=== PATIENT | female | born 1995 | race Caucasian/White ===

== ENCOUNTER → 2016-09-30 11:42 | Outpatient (CLI) | payer BC ==
[~2016-09-30 11:42] MED LIST: AMOXICILLIN500 M1 PO; IBUPROFEN600 MG PO; PERCOCET 5-3251 TAB PO; PRENATAL COMPLE1 TAB PO; ZANTAC150 MG PO
[2016-09-30 12:29] LABS: BASOPHILS 0.1 % (0.0-2.0); EOSINOPHILS 0.4 % (0-7); HEMATOCRIT 33.1 % (36.0-48.0); IMMATURE GRANULOCYTES 0.7 % (0-5); LYMPHOCYTES 13.3 % (15-50); MCH 29.4 pg (26.0-34.0); MCHC 33.2 g/dL (31.0-37.0); MCV 88.5 fL (80.0-100.0); MEAN PLATELET VOLUME 11.9 fL (7.4-10.4); MONOCYTES 5.8 % (2-11); NEUTROPHILS 79.7 % (40-80); RBC 3.74 10x6/uL (4.00-5.40); RDW 13.6 % (11.5-14.5); WBC 11.2 10x3/uL (4.8-10.8)
[2016-09-30 12:33] LABS: PLATELET COUNT 147 10x3/uL (130-400)
[2016-09-30 13:19] LABS: APPEARANCE HAZY (CLEAR); BACTERIA MANY /hpf (NONE SEEN); BILIRUBIN NEGATIVE (NEGATIVE); CALCIUM OXALATE CRYSTALS 0-5 /hpf (NONE SEEN); COLOR YELLOW (YELLOW); GLUCOSE NEGATIVE (NEGATIVE); KETONE NEGATIVE (NEGATIVE); LEUKOCYTE ESTERASE 1+ (NEGATIVE); MUCUS <1+ /lpf (NONE SEEN); NITRITE NEGATIVE (NEGATIVE); PROTEIN NEGATIVE (NEGATIVE); RED CELLS - URINE OCC /hpf (0-5); UROBILINOGEN NORMAL (NORMAL)
== END | disposition home or self-care (01) ==
LOC: D.LDO 11:42
PROVIDERS: Obstetrics & Gynecology
DX: Z34.90 Encounter for supervision of normal pregnancy, unspecified, unspecified trimester (principal)

== ENCOUNTER → 2016-10-15 10:28 | Outpatient (CLI) | payer BC | END | disposition home or self-care (01) | LOC: D.LDO 10:28 | DX: O62.9 Abnormality of forces of labor, unspecified (principal); Z3A.33 33 weeks gestation of pregnancy ==

== ENCOUNTER 2016-10-18 19:05 | Outpatient (CLI) | payer BC ==
[2016-10-18 19:38] LABS: APPEARANCE CLOUDY (CLEAR); BILIRUBIN NEGATIVE (NEGATIVE); COLOR STRAW (YELLOW); GLUCOSE 50 mg/dL (NEGATIVE); KETONE NEGATIVE (NEGATIVE); LEUKOCYTE ESTERASE 2+ (NEGATIVE); NITRITE NEGATIVE (NEGATIVE); PROTEIN NEGATIVE (NEGATIVE); UROBILINOGEN NORMAL (NORMAL)
[2016-10-18 19:39] LABS: BACTERIA MODERATE /hpf (NONE SEEN); RED CELLS - URINE 0-5 /hpf (0-5)
== END 2016-10-18 20:21 ==
LOC: D.LDO 19:05
PROVIDERS: Specialist
DX: O36.8130 Decreased fetal movements, third trimester, not applicable or unspecified (principal); Z3A.33 33 weeks gestation of pregnancy; R10.10 Upper abdominal pain, unspecified

== ENCOUNTER 2016-11-11 11:25 | Outpatient (CLI) | payer BC ==
[2016-11-11 12:42] LABS: BACTERIA MANY /hpf (NONE SEEN)
[2016-11-11 12:43] LABS: AMORPHOUS SEDIMENT <1+ /lpf (NONE SEEN); APPEARANCE CLOUDY (CLEAR); BILIRUBIN NEGATIVE (NEGATIVE); COLOR YELLOW (YELLOW); GLUCOSE NEGATIVE (NEGATIVE); KETONE NEGATIVE (NEGATIVE); LEUKOCYTE ESTERASE 2+ (NEGATIVE); MUCUS <1+ /lpf (NONE SEEN); NITRITE NEGATIVE (NEGATIVE); PROTEIN TRACE mg/dL (NEGATIVE); RED CELLS - URINE 0-5 /hpf (0-5); UROBILINOGEN NORMAL (NORMAL)
== END 2016-11-11 16:00 | disposition home or self-care (01) ==
LOC: D.LDO 11:25
PROVIDERS: Obstetrics & Gynecology
DX: O26.893 Other specified pregnancy related conditions, third trimester (principal); Z3A.36 36 weeks gestation of pregnancy

== ENCOUNTER 2016-11-27 04:30 | Inpatient (IN) | payer BC ==
[~2016-11-27] VITALS: Ht 162.6 cm; Wt 83.0 kg
[2016-11-27] MEDS ORDERED: ZANTAC150 MG PO (04:46)
[2016-11-27] MEDS ORDERED: AMOXICILLIN500 M1 PO (04:47)
[2016-11-27] MEDS ORDERED: PRENATAL COMPLE1 TAB PO (04:47)
[2016-11-27 04:48] VITALS: BP 135/69; Ht 162.6 cm; Wt 83.0 kg
[2016-11-27 06:07] LABS: HEMATOCRIT 34.2 % (36.0-48.0); HEMOGLOBIN 11.2 g/dL (12-16); MCH 27.9 pg (26.0-34.0); MCHC 32.7 g/dL (31.0-37.0); MCV 85.3 fL (80.0-100.0); MEAN PLATELET VOLUME 12.5 fL (7.4-10.4); RBC 4.01 10x6/uL (4.00-5.40); RDW 14.5 % (11.5-14.5); WBC 10.7 10x3/uL (4.8-10.8)
[2016-11-27 06:30] LABS: APPEARANCE HAZY (CLEAR); BILIRUBIN NEGATIVE (NEGATIVE); COLOR YELLOW (YELLOW); GLUCOSE NEGATIVE (NEGATIVE); KETONE NEGATIVE (NEGATIVE); LEUKOCYTE ESTERASE TRACE (NEGATIVE); NITRITE NEGATIVE (NEGATIVE); PROTEIN NEGATIVE (NEGATIVE); UROBILINOGEN NORMAL (NORMAL)
[2016-11-27 06:31] LABS: BACTERIA MODERATE /hpf (NONE SEEN); MUCUS <1+ /lpf (NONE SEEN); RED CELLS - URINE OCC /hpf (0-5)
--- NOTE | 2016-11-27 06:35 | NUR ---
PT. UP TO BATHROOM. IN OPEN CRIB AT BEDSIDE. FOB LYING ON SOFA AWAKE.
[2016-11-28] VITALS (8 sets, daily range): BP systolic 114–129; BP diastolic 59–74
--- NOTE | 2016-11-28 04:28 | NUR ---
RCVD PT FROM Sonia CASTRO RN. PT ORIENTED TO ROOM. BREATH SOUNDS CLEAR AND UNLABORED X2. BOWEL SOUNDS ACTIVE X4. FUNDUS FIRM U/1. MOD LOCHIA RUBRA NOTED ON PERIPAD. PADS CHANGED AT THIS TIME. SCD'S ON AND CONNECTED TO PUMP. NS WITH 20 U PITOCIN INFUSING @ 125ML/HR VIA PUMP. Q 15MIN V/S INITIATED. PT DENIES NEEDS AT THIS TIME. PT RATES PAIN 3/10 CURRENTLY IN ABD AND DESCRIBES IT A DULL ACHE. WILL INITIATE AUTO WASHER.
--- NOTE | 2016-11-28 04:53 | NUR ---
DEMEROL X RAY [employer]LECTRON[employer] WIREMAN INITIATED PER ORDERS. [facility] EDU PT ON X RAY [employer]LECT[employer] WIREMAN BUTTON AND THAT ONLY SHE IS TO PRESS BUTTON. PT VERBALIZED UNDERSTANDING.
--- NOTE | 2016-11-28 06:15 | NUR ---
ROUNDS MADE. PT SITTING UP IN BED TEXTING ON CELL PHONE. FOB RESTING ON BEDSIDE COUCH. 700 ML CLEAR YELLOW URINE EMPTIED FROM TOVAR BAG. PT DENIES PAIN OR NEEDS AT THIS TIME.
--- NOTE | 2016-11-28 07:30 | NUR ---
TO ROOM FOR AM ASSESMENT, NURSERY NURSE AT BEDSIDE ASSISTING WITH BREAST FEEDING WILL RETURN WHEN FINISHED. PT DENIES ANY NEEDS AT THIS TIME.
--- NOTE | 2016-11-28 08:15 | NUR ---
LACATIION CARBON ELECTRODES SUPERVISOR AT BEDSIDE. PT WILL CALL WHEN FINISHED SO THAT ASSESSMENT CAN BE COMPLETED. VSS, FUNDUS FIRM AT U/1 WITH LIGHT BLEEDING. RATES PAIN AT 4/10 AND USING GRADUATE TEACHER EDUCATION DIRECTED. ICE PACK OVER INCISION AT THIS TIME, CALL LIGHT IN REACH AND SPOUSE AT BEDSIDE.
--- NOTE | 2016-11-28 08:50 | NUR ---
Michelle Randolph [birth year] LE@ 8:03 S: Patient states she just got baby in the room not to long ago, unsure what to do right now, is he hungry or just fussy? P: Patient sitting up in bed holding infant in cradle position, FOB standing at bedside. Congratulated on delivery. Observed feeding cues, explain infants have a way of communicating with us, through cues. Explain what feeding cues are and explain how to latch , turn tummy to tummy, nose opposite of nipple, and allow infant to self latch. Infant latched on the left breast at 8:10, mouth 140 degrees, round cheeks, sucking in a rocking motion. Both mother and appear content, patient states no discomfort with latching. Nursery nurse came in room to get infant for doctor visit. Infant latched on the left breast from 8:10-8:14. In the beginning takes time and patience, feed infant on demand will help with establishing her milk supply, supply and demand, what baby takes out, your body will make more of. Explain breast milk composition. Explain how to verify is latched correctly and showed how to properly remove infant off the breast. Patient asked how do I know if he is getting anything. Infant will be satisfy after feeding, may remove his self from the breast, and by diaper count. Showed patient in book on keep it simple, how to look up common questions she may have like on page 34 how can I tell if my baby is getting enough to eat. This is a great book with lots of common questions all parents have. Nursery nurse brought infant back on room. Observed infant feeding cues and showed parents, patient latched at 8:38 on left breast mouth 140 degrees, round cheeks, sucking in a rocking motion, perfect latch. awake and alert, content with feeding. Encouraged to continue to latch infant for every feeding. Provided handouts and explained benefits of skin to skin, feeding cues, positions for , starting a feeding, and what to expect the first week. Asked if they had any questions or concerns, stated no and thanked for helping with , will follow up. Please ask for help as needed with . A: New parents, mother and infant learning to breastfeed. P: Continue to latch for every feeding. Alyce Gray, CLC
--- NOTE | 2016-11-28 09:53 | NUR ---
Pt awake and holding , fundus firm at u/1 with massage, light bleeding and no clots noted, angel pad changed. rates pain at 2/10, new ice pack over incision area. Bikini incision is covered with large white bandage that is clean and dry. IV patent and infusing per orders. bowel sounds active x 4, but she denies passing any gas at this time. SCD bilat and on pump. large cup of ice with lemon [place] soda per request. denies any needs or concerns at this time. in crib at bedside and spouse present. side rails up x 2 with phone and call light in reach.
--- NOTE | 2016-11-28 11:41 | NUR ---
demerol civil project engineer syringe changed. pt has infant to breast at this time and rates pain/cramping at 4/10 while feeding. spouse at bedside, side rails up x 2 and call light in reach.
[2016-11-28 12:18] LABS: RAPID PLASMA REAGIN Reactive (Non Reactive); TREPONEMA PALLIDUM AB Negative (Negative)
[2016-11-28 13:13] LABS: BASOPHILS 0.1 % (0.0-2.0); EOSINOPHILS 0.1 % (0-7); HEMATOCRIT 29.3 % (36.0-48.0); HEMOGLOBIN 9.6 g/dL (12-16); IMMATURE GRANULOCYTES 0.4 % (0-5); LYMPHOCYTES 5.9 % (15-50); MCH 27.6 pg (26.0-34.0); MCHC 32.8 g/dL (31.0-37.0); MCV 84.2 fL (80.0-100.0); MEAN PLATELET VOLUME 11.3 fL (7.4-10.4); MONOCYTES 6.3 % (2-11); NEUTROPHILS 87.2 % (40-80); PLATELET COUNT 149 10x3/uL (130-400); RBC 3.48 10x6/uL (4.00-5.40); RDW 14.5 % (11.5-14.5)
[2016-11-28 13:21] LABS: WBC 17.7 10x3/uL (4.8-10.8)
--- NOTE | 2016-11-28 13:45 | NUR ---
rates pain at 3/10, fundus firm with massage at u/u, output to khan canister noted to be 300. denies any needs at this time.
--- NOTE | 2016-11-28 15:00 | NUR ---
Iv completed and saline locked, veterinary virus serum inspector d/c per orders. Pt given tordal 30mg slow ivp per orders and than flushed site with 10ml ns. fundus firm at u/u with light bleeding noted to angel pad. Pads changed. Due to pt visitors waiting will remove khan and transfer to room 1257 after visitors leave. She will call for nurse when ready.
--- NOTE | 2016-11-28 15:30 | NUR ---
Pt calls out states she is ready to get up. Yang cath removed with a total of 2100ml clear urine noted. She is able to move her self to sitting on side of the bed, denies dizziness or nausea. Stands without complaint, angel pad and panties put on and pt lowers self on to wheelchair. Transferred to room 1257, she and spouse are oriented to room, call light and tv. Nursery nurse brings infant to room for feeding. per pt request she is transferred with little assistance to bedside chair and nursery nurse assist with breast feeding. Pain med offered, she rates pain at 7/10 and is agreeable to take the Percocet ordered.
--- NOTE | 2016-11-28 16:07 | NUR ---
Percocet 10/325mg given as charted on emar. spouse states he will be in room and will call when she is ready to get in to the bed or up to bathroom, if any assistance is needed. Provided nursery number and l/d unit desk number.
--- NOTE | 2016-11-28 17:50 | NUR ---
pt spouse to unit desk with questions about visitors under age of 14, policy gone over with him and he states that was his understanding and just needed to verify. Explained that nursery nurse was available if needed to go over this with visitor.
--- NOTE | 2016-11-28 18:30 | NUR ---
Pt sitting up in bed visiting with multiple family members. Questions answered about when she is able to shower and incision care after shower. Also given verbal instructions on how to remove bandage and wash incision site. Pt and spouse state their understanding but are encouraged to call nurse for assistance if needed. Reassured she is able to dress in her own gown after her shower. When asked about voiding she states that she has not due to fear of burning, reassured her this should not be an issue and that if she did not void in the next hour than and in and out cath might have to be done to empty her bladder, explained reason for this and she states her understanding and will call after she has voided, collection hat in bathroom already in place. Call light in reach.
--- NOTE | 2016-11-28 19:40 | NUR ---
FOB CALLS TO REPORT THAT PT. HAS VOIDED. TO ROOM. PT. SITTING UP IN CHAIR . 200CC URINE VOLUME NOTED IN [place] HAT. PT. REPORTS THAT AFTER THAT SHE WILL TAKE PAIN PILL AND THEN SHOWER. FAMILY AT BEDSIDE. INSTRUCTED PT. TO CALL THIS NURSE WHEN IS COMPLETE AND ASSESSMENT WILL BE DONE. PT. STATES UNDERSTANDING.
--- NOTE | 2016-11-28 20:28 | NUR ---
PT. AMBULATED FROM CHAIR BACK TO BED. GAIT STEADY. FOB ASSISTING PT. WITH WALKING AND INTO BED.
--- NOTE | 2016-11-28 20:32 | NUR ---
PT. REQUESTING PERCOCET. MED GIVEN ORDERED. SALINE LOCK NOTED IN LT. FOREARM. NO REDNESS NOR EDEMA NOTED. BREATH SOUNDS CLEAR AND BOWEL SOUNDS AUDIBLE ALTHOUGH HYPOACTIVE. PT. REPORTS THAT SHE FEELS "GAS MOVING". ENCOURAGED TO AMBULATE PRIOR TO LYING DOWN FOR BED FOR NIGHT. PT. STATED VERBAL UNDERSTANDING. ABD. DRESSING DRY AND INTACT. PT. STATES THAT SHE MIGHT LIKE TO SHOWER LATER IN NIGHT. DENIES ANY PAIN IN LOWER EXTREMITIES AND NO REDNESS NOTED. SPOUSE RETURNED INFANT TO NBN. ENCOURAGE PT. TO TRY AND SLEEP THIS PM DUE TO OBVIOUS FATIQUE. INFORMED THAT NBN WOULD BRING FOR FEEDINGS.
--- NOTE | 2016-11-28 21:15 | NUR ---
LYING ON LT SIDE WITH EYES CLOSED. RESPIRATIONS REGULAR. LIGHTS DIMMED IN ROOM. FOB ON SOFA.
--- NOTE | 2016-11-28 22:29 | NUR ---
LYING ON LT SIDE WITH EYES CLOSED. RESPIRATIONS REGULAR. FOB SLEEPING ON SOFA. INFANT IN OPEN CRIB AT BEDSIDE.INFANT KICKING AND MOVING BUT NOT CRYING.
--- NOTE | 2016-11-28 23:10 | NUR ---
AT PRESENT. FOB UP WALKING IN ROOM. INFORMED PT. TO CALL FOR THIS NURSE WHEN FEEDING COMPLETED SO VITAL SIGNS COULD BE DONE FOR HER. PT. STATES UNDERSTANDING.
[2016-11-29 00:15] VITALS: BP 115/67
--- NOTE | 2016-11-29 00:15 | NUR ---
COMPLETED AND PT. READY FOR VITAL SIGNS. PLACED BACK IN OPEN CRIB BY THIS NURSE. PT. DESIRES FOR INFANT TO REMAIN IN NBN UNTIL NEXT FEEDING. FOB ASSISTING PT. TO BATHROOM PER HER REQUEST. PT. STATES SHE PLANS TO SLEEP MORE.
--- NOTE | 2016-11-29 00:36 | NUR ---
PT REQUESTS MOTRIN FOR PAIN. RATES PAIN 7/10 AT THIS TIME, INTERMITTENT SHARP AND BURNING TO INCISION AND MILD ABD CRAMPING. DISCUSSED THAT PERCOCET COULD ALSO BE GIVEN FOR PAIN AT THIS TIME. PT REQUESTS TO TAKE PERCOCET AT THIS TIME ALSO. REINFORCED AND DEMONSTRATED PREVIOUS TEACHING ON SPLINTING, VERBALIZED AND PROVIDED RETURN DEMONSTRATION OF SPLINTING. BED IN LOW POSITION, UPPER SIDE RAILS RAISED X2. CL/PHONE WITHIN REACH. S/O AT BEDSIDE AND VERY SUPPORTIVE OF PT. DENIES NEEDS AT THIS TIME. FRESH ICE WATER GIVEN.
--- NOTE | 2016-11-29 01:22 | NUR ---
LYING ON BACK WITH EYES CLOSED AND RESPIRATIONS REGULAR. FOB SLEEPING ON SOFA.
--- NOTE | 2016-11-29 02:50 | NUR ---
INFANT TO ROOM FOR FEEDING. PT AWAKE AND ALERT. DENIES NEEDS/PAIN AT THIS TIME. CARMITA SCHWARTZ
--- NOTE | 2016-11-29 04:15 | NUR ---
PT. CALLS TO REPORT THAT SHE IS GOING TO GET INTO SHOWER. INQUIRING WHEN PAIN MED DUE. TO ROOM AND INFORMED PT. THAT MED DUE IN 30 MINUTES. PT. REPORTS THAT SHE WILL CALL WHEN OUT OF SHOWER. OFFERED TO ASSIST PT. BUT PT. STATES THAT SPOUSE WILL HELP HER. RETURNED TO [facility] FOR PT.
--- NOTE | 2016-11-29 04:27 | NUR ---
SPOUSE CALLS TO REPORT VOID. TO ROOM. PT. SITTING IN CHAIR. 500CC NOTED IN [place] HAT. INFORMED THAT SHE NO LONGER NEEDS TO COLLECT URINE. PAIN MED GIVEN. FOB PREPARING SHOWER FOR PT.
--- NOTE | 2016-11-29 05:30 | NUR ---
PT. SITTING UP IN CHAIR . RELATES THAT PAIN MED AND SHOWER MADE HER FEEL MUCH BETTER. RATES PAIN A 3 OF 10 ON PAIN SCALE. CHEERFUL. DENIES ANY NEEDS.
--- NOTE | 2016-11-29 06:44 | NUR ---
CONTINUES TO SIT IN CHAIR. FOB HOLDING INFANT. RETURNED INFANT TO NURSERY PER THIS NURSE AT PT'S REQUEST.
--- NOTE | 2016-11-29 07:20 | NUR ---
ASSUME CARE OF THIS PATIENT. CURRENTLY SLEEPING RESPIRATIONS EVEN. WILL COMPLETE SHIFT ASSESSMENT WHEN AWAKE.
[2016-11-29 08:17] VITALS: BP 107/62
--- NOTE | 2016-11-29 08:24 | NUR ---
SHIFT ASSESSMENT COMPLETED. IN NURSERY. HAS BEEN WITH MINIMAL DIFFICULTY. HAS NOTED SMALL AMOUNT OF BLEEDING FROM LEFT NIPPLE. REASSURANCE GIVEN. DISCUSSED CAUSES AND RELIEF MEASURES ALONG WITH PREVENTION. NIPPLES INTACT WITH SLIGHT ERRYTHEMA AT 1200 ON RIGHT BREAST AND 1300 ON LEFT BREAST. INCISION INTACT WITHOUT ERRYTHEMA. NO REQUESTS AT THIS TIME. SAYS SHE HAS BEEN PASSING GAS BUT HAS NOT HAD A BM. FOB IN ROOM. SIDE RAILS UP X 2, CALL LIGHT IN REACH. TO CALL IF ANYTHING IS NEEDED.
--- NOTE | 2016-11-29 09:23 | NUR ---
INFANT TO ROOM FOR . CONFIRMED INFANT AND MATERNAL ARM BANDS. DENIES NEEDING ANYTHING AT THIS TIME. FOB IN ROOM.
--- NOTE | 2016-11-29 10:22 | NUR ---
SITTING IN BED HOLDING INFANT. REQUESTED PAIN MEDICATION FOR 6/10 STABBING PAIN IN INCISION. PERCOCET 10 MG GIVEN PO FOR RELIEF. DENIES NEEDING ANYTHING ELSE. FOB IN ROOM SLEEPING ON COUCH. SIDE RAILS UP X 2, CALL LIGHT IN REACH. TO CALL IF ANYTHING IS NEEDED.
--- NOTE | 2016-11-29 11:34 | NUR ---
SITTING UP IN BED. VISITORS IN ROOM. SAYS PAIN IS BETTER, NOW /10. DENITES NEEDING ANYTHING. WAITING ON LUNCH. INFANT AND FOB IN ROOM.
--- NOTE | 2016-11-29 12:02 | NUR ---
NOTED PATIENT HAD POSITIVE RPR ON ADMIT WITH A NEGATIVE T. PALLIDUM TEST. DR SINCLAIR NOTIFIED. PER MD TELL PATIENT TO FOLLOW-UP WITH HER PCM .
--- NOTE | 2016-11-29 13:47 | NUR ---
REQUESTED PAIN MEDICATION FOR 6/10 INCISIONAL STABBING. WAS INSTRUCTED NOT QUITE TIME FOR PERCOCET. MOTRIN 600 MG GIVEN PO AT THIS TIME. WILL GIVE PERCOCET WHEN TIME IF NEEDED. VERBALIZED UNDERSTANDING. SAYS SHE NEEDS TO COUGH, ENCOURAGED SPLINTING OF ABDOMEN AND TO TRY STANDING UP WHEN COUGHING THIS MAY HELP. ALSO ENCOURAGED AMBULATION AROUND [facility] WHEN PAIN HAS DECREASED. INFANT AND FOB IN ROOM. CURRENTLY EATING LUNCH, VISITORS JUST LEFT. SIDE RAILS UP X 2, CALL LIGHT IN REACH. TO CALL IF ANYTHING IS NEEDED.
--- NOTE | 2016-11-29 14:18 | NUR ---
STILL WITH 5/10 INCISIONAL PAIN. PERCOCET 10 MG GIVEN PO FOR RELIEF. SAYS SHE WAS ABLE TO GET A COUPLE OF "GOOD COUGHS". INFANT IN ROOM. FOB AT BEDSIDE. STILL EATING LUNCH. NO OTHER REQUESTS OR NEEDS AT THIS TIME.
[2016-11-29 14:20] VITALS: BP 111/65
--- NOTE | 2016-11-29 14:20 | NUR ---
C/O SALINE LOCK ITCHING AND "BOTHERING ME". SALINE LOCK DC'D AT THIS TIME WITH CATHETER INTACT.
--- NOTE | 2016-11-29 15:31 | NUR ---
SITTING UP IN CHAIR INFANT. DENIES ANY PAIN AT THIS TIME. NO REQUEST.
--- NOTE | 2016-11-29 16:53 | NUR ---
SITTING UP IN BED . VISITORS IN ROOM. DENIES NEEDING ANYTHING AT THIS TIME. TO CALL IF ANYTHING IS NEEDED.
--- NOTE | 2016-11-29 18:02 | NUR ---
SITTING UP IN BED EATING DINNER. ASKED ABOUT MEAL MENU FOR TOMORROW. KITCHEN NOTIFIED AND WILL SEND OVER BREAKFAST MENU FOR PATIENT. TO ADDITIONAL REQUESTS OR COMPLAINTS AT THIS TIME. FOB WITH INFANT IN ARMS ON COUCH. CALL LIGHT IN REACH.
--- NOTE | 2016-11-29 19:15 | NUR ---
RN TO PT BS. PT SITTING IN BED IN SEMI-FOWLERS POSITION , PT IN NO ACUTE DISTRESS. POC DISCUSSED WITH PT AND SO. QUESTIONS ANSWERED. WILL RETURN TO PERFORM ANDRE WHEN EFFORT IS COMPLETE.
--- NOTE | 2016-11-29 19:30 | NUR ---
RN TO PT BS WITH NURSERY RN. PT SITTING IN BED ATTEMPTING TO . NURSERY RN TAKES TO OPEN CRIB AT BS FOR ANDRE. ANDRE PERFORMED BY RN. PT IS A 21YO G1 NOW P1 WITH PRIMARY C/S OF VIABLE MALE 11/28/16 @ 0308, @ 39.2 WKS GESTATION. PT WITH C/S FOR FAILURE TO DESCENT. AAOX3. HR REGULAR. LUNGS CTAB. ABDOMEN SOFT AND NON TENDER. BS ACTIVE TIMES 4. LOWER ABDOMINAL INCISION NOTED. NO STERI STRIPS OR TERESA IN PLACE. INCISION WELL PROXIMATED WITH NO REDNESS, EDEMA, OR DRAINAGE NOTED FROM SITE. PT STATES SHE IS PASSING GAS WITHOUT DIFFICULTY BUT STATES SHE HAS NOT HAD A BM SINCE C/S. PT DENIES DIFFICULTY VOIDING. FUNDUS NO PALPATED AT THIS TIME. LOCHIA RUBRA SCANT. NILESH PAD AND PANTIES IN PLACE. 1+ EDEMA NOTED TO UPPER AND LOWER EXTREMITIES BILATERALLY. NO IV ACCESS NOTED AT THIS TIME. PT STATES PAIN IS 3/10, DENIES THE NEED FOR MEDICATION AT THIS TIME. PT DENIES ANY FURTHER NEEDS. NURSERY RN REMAINS AT PT BS FOR ASSISTANCE WITH . PT ENCOURAGED TO CALL WITH ANY NEEDS. BED IN LOW POSITION, SIDE RAILS UP TIMES 2, CALL LIGHT AND PHONE IN REACH. SO REMAINS AT PT BS FOR SUPPORT AND ASSISTANCE. REMAINS AT PT BS FOR COUPLET CARE. WILL CONT TO MONITOR PT STATUS.
[2016-11-29 19:36] VITALS: BP 116/66
--- NOTE | 2016-11-29 19:58 | NUR ---
RN CALLED TO PT BS WITH C/O PAIN, PT AMBULATING IN ROOM AT THIS TIME. PT RATES PAIN 03/23, REQUESTS MEDICATION. 1 TAB PERCOCET 10 AND 1 TAB IBUPROFEN PROVIDED AT THIS TIME. PT DENIES ANY FURTHER NEEDS. BED IN LOW POSITION, SIDE RAILS UP TIMES 2, CALL LIGHT AND PHONE IN REACH. SO REMAINS AT PT BS FOR SUPPORT AND ASSISTANCE. REMAINS AT PT BS FOR COUPLET CARE. WILL CONT TO MONITOR PT STATUS.
--- NOTE | 2016-11-29 21:22 | NUR ---
RN TO PT BS FOR ROUNDS. PT RESTING IN BED IN SEMI-FOWLERS POSITION, , IN NO ACUTE DISTRESS. PT DENIES ANY NEEDS AT THIS TIME. BED IN LOW POSITION, SIDE RAILS UP TIMES 2, CALL LIGHT AND PHONE IN REACH. SO REMAINS AT PT BS FOR SUPPORT AND ASSISTANCE. REMAINS AT PT BS FOR COUPLET CARE. WILL CONT TO MONITOR PT STATUS.
--- NOTE | 2016-11-29 22:02 | NUR ---
CALLED TO ROOM VIA CL. PT REQUESTS MORE BABY WIPES, GIVEN PER REQUEST. PAIN CURRENTLY 4/10, DENIES NEED FOR INTERVENTION. DENIES ADDITIONAL NEEDS. SPOUSE AT BEDSIDE AND SUPPORTIVE OF PT. BED IN LOW POSITION WITH UPPER SIDE RAILS RAISED X2, CL/PHONE WITHIN PT REACH.
[2016-11-29 23:52] VITALS: BP 124/67
--- NOTE | 2016-11-29 23:53 | NUR ---
RN TO PT BS FOR VS. PT RESTING IN BED IN SEMI-FOWLERS POSITION, HOLDING INFANT, IN NO ACUTE DISTRESS. VS TAKEN, WNL. PT DENIES ANY NEEDS AT THIS TIME. BED IN LOW POSITION, SIDE RAILS UP TIMES 2, CALL LIGHT AND PHONE IN REACH. SO REMAINS AT PT BS FOR SUPPORT AND ASSISTANCE. AT PT BS FOR COUPLET CARE. WILL CONT TO MONITOR PT STATUS.
--- NOTE | 2016-11-30 02:48 | NUR ---
ROUNDS MADE. PT RESTING WITH EYES CLOSED. RESPIRATIONS REGULAR, NO S/S OF DISTRESS NOTED. S/O SLEEPING ON COUCH AT BEDSIDE. BED IN LOW POSITION WITH UPPER SIDE RAILS RAISED X2, CL/PHONE WITHIN REACH. WILL CONT TO MONITOR AND ASSIST PRN.
--- NOTE | 2016-11-30 04:20 | NUR ---
ROUNDS MADE. PT RESTING WITH EYES CLOSED. RESPIRATIONS REGULAR. NO S/S OF DISTRESS NOTED. S/O REMAINS AT BEDSIDE, SLEEPING ON COUCH. BED IN LOW POSITION WITH UPPER SIDE RAILS RAISED X2. CL/PHONE WITHIN REACH. WILL CONT TO MONITOR AND ASSIST PRN.
--- NOTE | 2016-11-30 04:54 | NUR ---
PAIN 03/23. REQUESTED PAIN PILL AT THIS TIME. STATES PAIN IS TO INCISION, "ACHING AND SORE AND BURNING A LITTLE." PERCOCET GIVEN PER ORDER, SEE EMAR. ICE WATER GIVEN. PT CURRENTLY SITTING IN HIGH FOWLERS POSITION IN THE BED NURSING . S/O REMAINS AT BEDSIDE, SUPPORTIVE OF PT. DENIES ADDITIONAL NEEDS AT THIS TIME. BED REMAINS IN LOW POSITION WITH UPPER SIDE RAILS RAISED X2. CL/PHONE WITHIN REACH.
--- NOTE | 2016-11-30 07:15 | NUR ---
ASSUMED CARE OF PATIENT. SITTING IN LOW FOWLERS POSITION WITH ON CHEST. AWAKE WITHOUT ANY COMPLAINTS. WILL COMPLETE SHIFT ASSESSMENT AFTER BREAKFAST. NO REQUESTS FOR PAIN MEDICATION AT THIS TIME. SIDE RAILS UP X 2, CALL LIGHT IN REACH. FOB SLEEPING ON COUCH.
[2016-11-30 08:40] VITALS: BP 115/67
--- NOTE | 2016-11-30 08:58 | NUR ---
MYLICON 80 MG GIVEN PO FOR RELIEF OF GAS PAIN PER REQUEST OF PATIENT.
--- NOTE | 2016-11-30 09:04 | NUR ---
SHIFT ASSESSMENT COMPLETED. 4/10 INCISIONAL PAIN BUT DENIES NEEDING ANYTHING AT THIS TIME. NO REQUESTS, INFANT IN ROOM, FOB AT BEDSIDE.
--- NOTE | 2016-11-30 09:39 | NUR ---
AMBULATING IN ROOM, TEARFUL, C/O INCISIONAL PAIN 8-05/24. DISCUSSED PAIN MANAGEMENT OPTIONS PERCOCET 5 MG OR 10 MG. SHE OPTED FOR 5 MG AT THIS TIME. OFFERED SHOWER AND DECIDED TO TAKE ONE AT THIS TIME. FOB IN ROOM. INFANT IN NURSERY
--- NOTE | 2016-11-30 09:56 | NUR ---
UP IN SHOWER. LINENS CHANGED. ANTICIPATE DC TO ROOMING-IN STATUS.
--- NOTE | 2016-11-30 10:26 | NUR ---
RETURNED TO BED AFTER SHOWER AND AMBULATING IN ROOM. 4/10 ON PAIN SCALE OFFERED MOTRIN TO HELP WITH RESIDUAL PAIN AND ANY CRAMPING. FOB IN ROOM.
--- NOTE | 2016-11-30 10:40 | NUR ---
MOTRIN 600 MG GIVEN FOR RELIEF OF 4/10 INCISIONAL PAIN. LAYING ON LEFT SIDE IN BED. FOB IN ROOM. INFANT UNDER BILI LIGHTS. PRESCRIPTIONS GIVEN TO PATIENT SO THAT SPOUSE CAN ROUTE SALES DELIVERY DRIVER FOR USE WHILE ROOMING-IN. SIDE RAILS UP X 2, CALL LIGHT IN REACH.
--- NOTE | 2016-11-30 11:46 | NUR ---
SITTING UP IN BED. VISITORS IN ROOM. DENIES PAIN AT THIS TIME 0/10. SPOUSE HAS NOT PICKED UP PT RX FOR PAIN MEDICATION. WILL PLAN DC TO ROOMING IN STATUS WHEN HE RETURNS WITH FILLED PRESCRIPTIONS. NO REQUESTS AT THIS TIME. IN RO0M.
[2016-11-30] MEDS ORDERED: PERCOCET 5-3251 TAB PO (11:51)
[2016-11-30] MEDS ORDERED: IBUPROFEN600 MG PO (11:51)
--- NOTE | 2016-11-30 13:24 | NUR ---
TDAP GIVEN IM AFTER PATIENT READ INFORMATION AND REQUESTED. DC INSTRUCTIONS COMPLETED INCLUDING POST OP CARE, PP DEPRESSION, S&S INFECTION, MEDICATION ADMINISTRATION, /BREAST CARE, COMMUNITY RESOURCES AND FOLLOW-UP. VERBALIZED UNDERSTANDING. DC'D AT THIS TIME FOR ROOMING-IN. WILL STAY IN 1257. NURSERY NOTIFIED AND PATIENT SIGNED CONSENT FORM. FOB HAS PRESCRIPTIONS IN ROOM. PT INSTRUCTED WHEN NEXT MEDICATION DOSES CAN BE TAKEN. VERBAL AND WRITTEN DC INSTRUCTIONS GIVEN.
--- NOTE | 2016-11-30 14:16 | NUR ---
LATE ENTRY- PATIENT WAS NOTIFIED OF POSITIVE RPR WITH A NEGATIVE CONFIRMATORY TEST YESTERDAY PER REQUEST OF DR SINCLAIR. PT WAS INSTRUCTED TO F/U WITH HER PRIMARY CARE PROVIDER OR REGULAR RN TESTING FOR FURTHER INFORMATION. EXPLAINED TO PATIENT MOST LIKELY A FALSE POSITIVE TEST AND COULD BE RELATED TO BEING BUT HER PHYSICIAN CAN ANSWER FURTHER QUESTIONS. VERBALIZED UNDERSTANDING AT TIME OF DISCUSSION.
--- NOTE | 2016-12-14 15:04 | OP ---
PATIENT NAME: PRISCILA MCCRACKEN MEDICAL RECORD: [id number] :93 LOCATION:[id number] ADMISSION DATE:11/27/16 SURGEON: NIR MORALEZ MD DATE OF OPERATION: 11/28/2016 PREOPERATIVE DIAGNOSES: 1. Intrauterine at 39 weeks, 2 days. 2. Arrest of dilation. 3. Failure of descent. 4. Suspected cephalopelvic disproportion. POSTOPERATIVE DIAGNOSES: 1. Intrauterine at 39 weeks, 2 days. 2. Arrest of dilation. 3. Failure of descent. 4. Suspected cephalopelvic disproportion. 5. Delivered. SURGEON: Nir Moralez MD ANESTHESIA: Epidural anesthesia with Ricardo Barros CRNA. PROCEDURE: Primary low-transverse . FINDINGS: Delivery of viable male from vertex presentation via primary low-transverse under epidural anesthesia at 3:08 a.m. with weight of 8 pounds 3 ounces and scores of 8 and 9 at 1 and 5 minutes respectively. A shoulder cord was noted and reduced. The cord was clamped and cut. The was bulb suctioned and handed to awaiting pediatric nursing personnel. The placenta was delivered manually intact 3-vessel cord at 3:09 a.m. A 20 units of Pitocin and 1 liter of normal saline was begun IV. The fundus was noted to be firm. Normal appearing uterus, ovaries and tubes bilaterally. The patient went to the recovery room in stable condition, the to the nursery. DESCRIPTION OF PROCEDURE: After informed consent was given, the patient was taken to the operating room where epidural anesthesia was bolused and found to be adequate. She was placed in a dorsal supine position with a leftward tilt. A Yang catheter was already in place with clear urine return noted. She was prepped and draped sterilely. A Pfannenstiel skin incision was made with scalpel and carried through to the underlying layer of fascia. The fascia was incised in the midline and fascial incision extended bilaterally with Mcclellan scissors. The superior portion of the fascial incision was grasped with 2 Anita clamps and the rectus muscles dissected off sharply and bluntly. Attention was then turned to the inferior portion of the fascial incision, which was again grasped with 2 Anita clamps and the rectus muscles dissected off sharply and bluntly. The rectus muscles were in the midline, the peritoneum identified and entered bluntly with a finger. This incision was extended superiorly and inferiorly with good visualization of the bladder. The bladder blade was inserted and the vesicouterine peritoneum was grasped with smooth pickups and entered sharply with Metzenbaum scissors. This incision was extended bilaterally and a bladder flap created digitally. The bladder blade was reinserted and the hysterotomy was created with a knife. This was extended bilaterally bluntly and the infant's head delivered atraumatically. Cord was noted wrapped about the shoulder. This was reduced. The cord was clamped times 2 and cut. The was bulb suctioned and handed to awaiting pediatric OPERATIVE REPORT [id number] PRISCILA MCCRACKEN nursing personnel. The cord blood was obtained. The uterus was exteriorized, cleared of all clots and debris. The interior of the uterus was wiped with a moist lap sponge. The hysterotomy was closed with 0 chromic in a running locked fashion. Excellent hemostasis was noted and the uterus was returned to the abdomen. The abdomen was irrigated profusely and noted to be hemostatic. A second layer of running locked chromic was also placed imbricating the first. Excellent hemostasis was again noted. The rectus muscles were reapproximated in the midline with 3 interrupted chromic sutures. The fascia was closed with #1 Vicryl in a running fashion, locking the first suture. The subcutaneous tissue was irrigated, any bleeders cauterized with the Bovie and when noted to be sufficiently dry was closed in 2 layers with 3-0 Vicryl in a running fashion and the skin was closed with 3-0 Monocryl in a subcuticular fashion. Dermabond and pressure dressing were applied. Clear urine was noted at completion of the procedure. The patient tolerated procedure well. Sponge, lap, needle and instrument counts reported correct times 2 and the patient went to the recovery room in stable condition, the infant to the nursery. ESTIMATED BLOOD LOSS: 800 cc. URINE OUTPUT: 190 cc. SPECIMENS: Placenta and cord blood. COMPLICATIONS: None. TRANSINT:[id number] Voice Confirmation ID: [id number] DOCUMENT ID: [id number] NIR MORALEZ MD at 1504 CC: [id number] DICTATION DATE: 11/28/16411 LEGAL SPECIALIST: 11/28/16 0428 DIS IN 11/30/16 [facility] [address] [place] [address]
== END 2016-11-30 13:24 | disposition home or self-care (01) | DRG 766 ==
LOC: D.LD 04:30
PROVIDERS: ADMIT Specialist
PROC: 10D00Z1 Extraction of Products of Conception, Low, Open Approach (ICD-10-PCS; principal; 2016-11-28 02:51)
DX: O32.4XX0 Maternal care for high head at term, not applicable or unspecified (principal); Z3A.39 39 weeks gestation of pregnancy; Z37.0 Single live birth; O33.9 Maternal care for disproportion, unspecified; R87.622 Low grade squamous intraepithelial lesion on cytologic smear of vagina (LGSIL); O75.89 Other specified complications of labor and delivery

== ENCOUNTER → 2018-10-26 09:19 | Outpatient (CLI) | payer BC | END | disposition home or self-care (01) | LOC: D.LDO 09:19 | DX: O26.893 Other specified pregnancy related conditions, third trimester (principal); Z3A.30 30 weeks gestation of pregnancy ==

== ENCOUNTER 2018-12-08 18:29 | Outpatient (CLI) | payer BC ==
[2018-12-08 19:13] LABS: APPEARANCE CLEAR (CLEAR); BILIRUBIN NEGATIVE (NEGATIVE); COLOR YELLOW (YELLOW); GLUCOSE NEGATIVE (NEGATIVE); KETONE NEGATIVE (NEGATIVE); NITRITE NEGATIVE (NEGATIVE); PROTEIN NEGATIVE (NEGATIVE); SPECIFIC GRAVITY 1.025 (1.005-1.020); UROBILINOGEN NORMAL (NORMAL)
[2018-12-09] MEDS ORDERED: ZANTAC300 MG PO (21:48)
[2018-12-09] MEDS ORDERED: PHENERGAN25 M1 PO (21:49)
[2018-12-09] MEDS ORDERED: PRENAVITE1 TAB PO (21:49)
== END 2018-12-08 20:10 | disposition home or self-care (01) ==
LOC: D.LDO 18:29
PROVIDERS: ATTEND Obstetrics & Gynecology
DX: O26.893 Other specified pregnancy related conditions, third trimester (principal); Z3A.36 36 weeks gestation of pregnancy

== ENCOUNTER 2018-12-09 21:23 | Inpatient (IN) | payer BC ==
[~2018-12-09] VITALS: Ht 162.6 cm; Wt 87.7 kg
[2018-12-09] MEDS ORDERED: ZANTAC300 MG PO (21:48)
[2018-12-09] MEDS ORDERED: PHENERGAN25 M1 PO (21:49)
[2018-12-09] MEDS ORDERED: PRENAVITE1 TAB PO (21:49)
[2018-12-09 22:03] LABS: APPEARANCE CLEAR (CLEAR); BILIRUBIN NEGATIVE (NEGATIVE); COLOR YELLOW (YELLOW); GLUCOSE NEGATIVE (NEGATIVE); KETONE NEGATIVE (NEGATIVE); NITRITE NEGATIVE (NEGATIVE); PROTEIN TRACE mg/dL (NEGATIVE); UROBILINOGEN NORMAL (NORMAL)
[2018-12-09 22:08] LABS: UDS - AMPHET NEGATIVE QUAL (NEGATIVE); UDS - BARB NEGATIVE QUAL (NEGATIVE); UDS - BENZO NEGATIVE QUAL (NEGATIVE); UDS - COCAINE NEGATIVE QUAL (NEGATIVE); UDS - OPIATE NEGATIVE QUAL (NEGATIVE); UDS - PCP NEGATIVE QUAL (NEGATIVE); UDS - THC NEGATIVE QUAL (NEGATIVE)
[2018-12-09 22:09] LABS: BACTERIA FEW /hpf (NONE SEEN); RED CELLS - URINE 0-5 /hpf (0-5); WHITE CELLS - URINE 0-5 /hpf (0-5)
[2018-12-09 22:51] LABS: BASOPHILS 0.1 % (0-2); EOSINOPHILS 0.2 % (0-7); HEMATOCRIT 30.7 % (36.0-48.0); HEMOGLOBIN 9.9 g/dL (12-16); IMMATURE GRANULOCYTES 0.4 % (0-5); MCH 25.1 pg (26.0-34.0); MCHC 32.2 g/dL (31.0-37.0); MCV 77.7 fL (80.0-100.0); MEAN PLATELET VOLUME 12.1 fL (7.4-10.4); MONOCYTES 6.1 % (2-11); NEUTROPHILS 86.2 % (40-80); PLATELET COUNT 148 10x3/uL (130-400); RBC 3.95 10x6/uL (4.00-5.40); WBC 11.9 10x3/uL (4.8-10.8)
[2018-12-09 22:58] LABS: CREATININE - URINE 154.4 mg/dL (30-125); PRO/CRE RATIO URINE 0.1 mg/g; PROTEIN - URINE 17.6 mg/dL (0.0-11.9)
[2018-12-09 23:04] LABS: ALBUMIN 2.6 g/dL (3.4-5.0); ALKALINE PHOSPHATASE 113 U/L (46-116); ALT (SGPT) 17 U/L (10-68); BILIRUBIN - TOTAL 0.32 mg/dL (0.2-1.3); CALC OSMOLALITY 271 mosm/kg (275-300); CALCIUM 8.5 mg/dL (8.5-10.1); CARBON DIOXIDE 21.2 mmol/L (21.0-32.0); CHLORIDE - SERUM 102 mmol/L (98-107); CREATININE - SERUM 0.6 mg/dL (0.6-1.3); LDH 160 U/L (81-234); POTASSIUM - SERUM 3.7 mmol/L (3.5-5.1); PROTEIN - SERUM 6.4 g/dL (6.4-8.2); SODIUM 137 mmol/L (136-145); UREA NITROGEN 8 mg/dL (7-18); URIC ACID 4.1 mg/dL (2.6-7.2); eGFR NON AFRICAN AMERICAN > 90 mL/min (90-120)
[2018-12-09 23:08] LABS: GLUCOSE 107 mg/dL (74-106)
[2018-12-10] VITALS (8 sets, daily range): BP systolic 113–132; BP diastolic 58–74
--- NOTE | 2018-12-10 09:30 | NUR ---
RECEIVED FROM RECOVERY ROOM S/P REPEAT C/S. ALERT AND ORIENTED, HAD SPINAL ANESTHESIA FOR SURGERY, MOVING LOWER EXTREMETIES, LEFT > RIGHT AT THIS TIME. IV NS WITH 20 U PITOCIN PLACED ON ALARIS PUMP AT 125 ML/HR INFUSING INTO RIGHT INNER FA WITHOUT SIGNS OF INFILTRATION. SEE SHIFT ASSESSMENT FORM. U/2 FIRM MIDLINE, RUBRA SMALL CLEAN NILESH-PADS X 2 PLACED, ICE PACK ON INCISIONAL DRESSING, MOVED AND PLACED ON TOP OF GOWN. TOVAR DRAINING CLEAR YELLOW URINE AND IS ATTACHED TO INNER RIGHT THIGH. SCDS IN PLACE BILATERALLY AND PUMP TURNED ON. WORKING AND ALTERNATING X 2 LE. VS OBTAINED AND REPORT OBTAINED FROM OBSTETRICS AND GYNECOLOGY PROFESSOR. NO TORADOL WAS GIVEN IN RECOVERY. SIDE RAILS UP X2 CALL LIGHT IN PLACE. IN NURSERY.
--- NOTE | 2018-12-10 09:50 | NUR ---
INSTRUCTED ON USE OF INCENTIVE SPIROMETER, USED X3 FOLLOWED BY WEAK COUGH. ENCOURAGED TO USE EVERY HOUR. ICE CHIPS GIVEN. NO CURRENT POST OP ORDERS RECEIVED. U/2 RUBRA SCANT. CLEAN CHUX PLACED UNDER BUTTOCKS.
--- NOTE | 2018-12-10 10:05 | NUR ---
U/2 FIRM MIDLINE, RUBRA SMALL. BEGINNING TO FEEL INCISIONAL PAIN 03/23. ICE PACK IN PLACE. WILL CONTACT MD FOR POSTOP ORDERS. CURRENTLY IN OR.
--- NOTE | 2018-12-10 10:12 | NUR ---
DR SINCLAIR PAGED TO OBTAIN POST OP ORDERS.
--- NOTE | 2018-12-10 10:15 | NUR ---
OR STAFF RETURNED CALL FROM OR SUITE, DR SINCLAIR IN OR ROOM AND INFORMED THAT PATIENT BEGINNING TO C/O PAIN. T.O. RECEIVED.
--- NOTE | 2018-12-10 10:20 | NUR ---
U/2 FIRM MIDLINE RUBRA SMALL. VISITORS IN ROOM. INFANT REMAINS IN NURSERY.
--- NOTE | 2018-12-10 10:25 | NUR ---
TORADOL 30 MG GIVEN IVP FOR 7/10 INCISIONAL BURNING AFTER DISCUSSING MEDCIATION WITH PATIENT.
--- NOTE | 2018-12-10 10:35 | NUR ---
U/2 FIRM KYMLIN, NEERAJ SMALL, CLEAN PERIPADS PLACED. INCENTIVE SPIROMETER USED X 3 WITH COUGH X 2. PT SUPPORTING ABDOMEN. SAYS HER PAIN IS A LITTLE BETTER 5/10 AFTER TORADOL. NO REQUESTS. SIDE RAILS UP X 2, CALL LIGHT IN REACH. TO CALL IF ANYTHING IS NEEDED.
--- NOTE | 2018-12-10 10:43 | NUR ---
DILUADID FELT COVERER INITIATED. CONFIRMED DOSAGE AND SETTING WITH Sonia MCKINLEY RN. INSTRUCTED PATIENT ON USE OF PT CONTROLLER. PLACED IN REACH WITH CALL LIGHT. SIDE RAILS UP X 2, CALL LIGHT IN REACH. 5/10 INCISIONAL BURNING, SAYS IT HAS GOTTEN BETTER AFTER TORADOL DOSE. CLEAN NILESH-PAD ON RUBRA SMALL. U/2 FIRM. INCENTIVE SPIROMETER USED. TAKING ICE CHIPS WITHOUT NAUSEA. VISITOR IN ROOM X 1.
--- NOTE | 2018-12-10 11:15 | NUR ---
SITTING UP IN BED TALKING TO VISITORS. SAYS HER PAIN IS GETTING BETTER. USING JOB PLACEMENT COUNSELOR CONTROLLER PRN. NOW 12/22. FRESH ICE WATER GIVEN AND INFORMED THAT SHE CAN HAVE CLEAR LIQUIDS, GATORAID IN ROOM. SIDE RAIL UP X 2, CALL LIGHT IN REACH.
--- NOTE | 2018-12-10 11:45 | NUR ---
HAT BLOCKING OPERATOR VISITED PATIENT. PLANS TO BREASTFEED. NON SMOKER. O+ RUBELLA IMMUNE, GBS NEGATIVE. SAYS SHE RECEIVED FLU VACCINE DURING .
--- NOTE | 2018-12-10 12:35 | NUR ---
SITTING UP IN BED, USING BREAST PUMP. U/2 FIRM MIDLINE, RUBRA SCANT TO SMALL. CLEAN NILESH-PADS X 2 PLACED. DISCUSSED USE OF PASSENGER SOLICITOR AND TO USE PRN. VERBALIZED UNDERSTANDING. SIDE RAILS REMAIN UP X 2. TO CALL IF ANYTHING IS NEEDED. FOB AT BEDSIDE.
--- NOTE | 2018-12-10 14:20 | NUR ---
POSITIONED FROM BACK TO LEFT SIDE. CLEAN CHUX, PERIPADS X 2 PLACED. RUBRA SCANT TO SMALL U/2 FIRM. I&O AND VS COMPLETED. SAYS SHE HAS BEEN USING INCENTIVE SPIROMETER, LAST TIME APPROX 40 MINS AGO. 3/10 INCISIONAL BURNING. USING ARTISTS' BOOKING REPRESENTATIVE PRN. FRESH ICE PACK GIVEN FOR USE OVER INCISION. FRESH WATER GIVEN. DID NOT EAT MUCH CLEAR LIQUID LUNCH, OFFERED ALTERNATIVE CLEAR LIQUIDS. DECLINES AT THIS TIME. SAYS SHE IS NOT VERY HUNGRY. INFANT REMAINS IN NURSERY. FOB ASLEEP ON COUCH. SIDE RAILS UP X 2, CALL LIGHT AND ARTISTS' BOOKING REPRESENTATIVE CONTROLLER IN REACH. NO ADDITIONAL REQUESTS.
[2018-12-10 15:16] LABS: HEMATOCRIT 25.9 % (36.0-48.0); HEMOGLOBIN 8.5 g/dL (12-16); LYMPHOCYTES 6.6 % (15-50); MCH 25.5 pg (26.0-34.0); MCHC 32.8 g/dL (31.0-37.0); MCV 77.8 fL (80.0-100.0); MEAN PLATELET VOLUME 11.3 fL (7.4-10.4); NEUTROPHILS 87.8 % (40-80); PLATELET COUNT 150 10x3/uL (130-400); RBC 3.33 10x6/uL (4.00-5.40); RDW 14.5 % (11.5-14.5); WBC 13.1 10x3/uL (4.8-10.8)
--- NOTE | 2018-12-10 16:15 | NUR ---
PATIENT DESIRED TO GO TO NURSERY TO SEE . ASSISTED PATIENT TO WHEELCHAIR. TOLERATED WELL, NO C/O DIZZINESS UNTIL AFTER SITTING IN CHAIR. COMPLAINT RESOVED, WHEELED TO NURSERY TO SEE WHICH IS IN THE OBSERVATION UNIT. FOB ALSO PRESENT. NURSERY NURSE TO CALL WHEN READY TO COME BACK TO ROOM.
--- NOTE | 2018-12-10 17:30 | NUR ---
PT DESIRED TO RETURN TO ROOM. RETURNED TO ROOM VIA WHEELCHAIR. STOOD UP WITHOUT DIFFICULTY. READY TO EAT. DESIRES TO START AMBULATION AND SHOWER WHEN POSSIBLE. ASSISTED TO BED. WILL REPLACE SCD'S AFTER EATING. FOB IN ROOM, SIDE RAILS UP X 2.
--- NOTE | 2018-12-10 17:40 | NUR ---
NEW ORDERS WERE NOTED. COMMUNITY LIAISON DC'D. PERCOCET 2 GIVEN PO FOR C/O 610 INCISIONAL PAIN. SCHEDULED MOTRIN ALSO GIVEN. REGULAR DIET SERVED. DESIRED TOVAR OUT. TOVAR DC'D WITH 400 ML CLEAR URINE IN BAG. WILL SALINE LOCK IV AFTER EATING.
--- NOTE | 2018-12-10 18:36 | NUR ---
SITTING UP IN BED PUMPING. SAYS HER PAIN IS NOW 3/10. ATE 100% OF DIET. DESIRES TO SHOWER. INSTRUCTED WILL EVALUATE AFTER SHIFT CHANGE TO SEE HOW SHE TOLERATES BEING OUT OF BED. RUBRA HAS BEEN SCANT TO SMALL. SIDE RAILS UP X 2, CALL LIGHT IN REACH.
--- NOTE | 2018-12-10 19:44 | NUR ---
PT. AWAKE AND SITTING UP IN BED ATTEMPTING TO PUMP BREAST. SALINE LOCK NOTED IN RT. FOREARM. RATES PAIN A 5 OF 10 ON PAIN SCALE. ABD. DRESSING CLEAN AND DRY. BOWEL SOUNDS HYPOACTIVE.LOCHIA RUBRA SCANT TO MOD. FUNDUS FIRM U/2. SCDS OFF AT THIS TIME. PT. MOVING ABOUT IN BED AND GETTING UP TO BATHROOM AD. JACKIE. FOB IN ROOM AND ASSISTING PT. WHEN ASKED. ICE CAP NOTED AGAINST ABD. INCISIION.
--- NOTE | 2018-12-10 19:58 | NUR ---
PT. REPORTS THAT SHE TAKES ZANTAC 150MG TWICE DAILY. DR. SHETTY CALLED AND INFORMED OF PT. WISHES. ORDER RECEIVED.
--- NOTE | 2018-12-10 20:53 | NUR ---
PT. CALLED THIS NURSE TO ROOM TO REPORT THAT RT. UPPER ARM IS ITCHING AND SHE NOTED FACE WAS RED. INSPECTED PT. SKIN. SCRATCH CROWELL NOTED ON BACK ALTHOUGH NO RASH NOTED. ASKED PT. IF SHE HAD TAKEN PERCOCET PRIOR TO TODAY. PT. STATES SHE HAS SOME A COUPLE OF NIGHTS AGO AND EVEN FURTHER IN THE PAST WITHOUT PROBLEMS. INQUIRED IF SHE NEEDED SOMETHING FOR ITCHING AND PT. REPORTS THAT SHE THINKS SHE IS JUST THINKING ABOUT ITCHING SO FEELS ITCHING. PT. STATES SHE WILL LET THIS NURSE KNOW IF BEDADRYL NOTED.
--- NOTE | 2018-12-10 21:01 | NUR ---
PUMPING BREAST AT PRESENT. FOB IN ROOM . PEPSID GIVEN ORDERED.
--- NOTE | 2018-12-10 21:15 | NUR ---
FOB OF PT. TO DESK STATING THAT PT. WANTS TO GO AHEAD WITH ANDREW.
--- NOTE | 2018-12-10 21:21 | NUR ---
DR. SHETTY CALLED REGARDING PT. DESIRES FOR BENADRYL. ORDER RECEIVED.
--- NOTE | 2018-12-10 21:25 | NUR ---
PT REPORTS THAT SHE IS PLANNING TO GO TO NURSERY TO VISIT INFANT. INFORMED PT. THAT BENADRYL ORDER RECEIVED BUT THE MODE OF ADMINISTRATION IS IV WHICH MEANS THE MEDICATION WILL WORK FASTER AND WILL CAUSE DROWSINESS. PT. STATES THAT SHE WOULD PREFER TO TAKE MEDICATION AFTER SHE RETURNS FROM THE VISIT WITH INFANT. SHE WILL CALL THIS NURSE WHEN SHE DESIRES MEDICATION.
--- NOTE | 2018-12-10 21:30 | NUR ---
DR. NORIEGA INTO PT. ROOM.
--- NOTE | 2018-12-10 21:40 | NUR ---
PAIN MEDICATION GIVEN FOR PAIN SCORE OF [address] NORIEGA GAVE HER A GOOD REPORT ON HER INFANT AND SHE IS GOING TO THE NURSERY FOR SKIN TO SKIN TIME. STATES THIS WILL BE THE FIRST TIME SHE HAS HELD HER BABY. WHEELCHAIR TO PT. DOOR. FOB PLANS TO ACCOMPANY PT. TO NBN. PT. UP TO BATHROOM TO VOID BEFORE GOING TO NBN.
--- NOTE | 2018-12-10 22:43 | NUR ---
PT. RETURNED FROM [facility]. CHEERFUL AND STATES SHE GOT TO HOLD INFANT AND "IT WAS THE BEST FEELING EVER." STATES SHE WILL BE READY FOR BENADRYL. RATES PAIN A 5 OF 10 ON PAIN SCALE. STATES SHE FEELS " MUCH BETTER".
--- NOTE | 2018-12-10 22:51 | NUR ---
BENADRYL 50MG GIVEN SLOW IV PUSH. IV SALINE LOCK FLUSHED WITH SALINE BEFORE AND AFTER MEDICATION ADMINISTRATION. IV FLUSHED WITH EASE. NO EVIDENCE OF INFILTRATION.
--- NOTE | 2018-12-10 22:58 | NUR ---
VITAL SIGNS OBTAINED. ABD. DRESSING DRY AND INTACT. PT. STATES THAT SHE IS READY TO SLEEP. SCDS REAPPLIED AND CONNECTED TO PUMP WHICH IS FUNCTIONAL. INFORMED PT. TO REMEMBER SCDS ARE ON HER LEGS PRIOR TO ATTEMPTING TO AMBULATE TO THE BATHROOM. PT. STATES UNDERSTANDING. SIDE RAILS UP X 2. CALL LIGHT WITHIN PT. REACH. FOB STATES THAT HE HAS ALL LINENS HE NEEDS FOR HIS BED ON SOFA. LIGHTS DIMMED PER PT. REQUEST.
--- NOTE | 2018-12-11 00:47 | NUR ---
LYING ON RT. SIDE. RESPIRATIONS UNLABORED. SCDS ON AND FUNCTIONAL. FOB LYING ON SOFA.
--- NOTE | 2018-12-11 02:43 | NUR ---
LYING ON BACK WITH EYES CLOSED. RESPIRATIONS UNLABORED. FOB ASLEEP ON SOFA.
--- NOTE | 2018-12-11 04:43 | NUR ---
DR. NORIEGA HERE AND INTO PT. ROOM. ENCOURAGING PT. AND SPOUSE TO GO TO [facility] TO BE WITH . PT. TO BATHROOM AND VOIDED 700CC. REQUESTING PAIN MED.
--- NOTE | 2018-12-11 04:51 | NUR ---
pt in nbn holding . Dr. NORIEGA TALKING TO PT. ABOUT CONDITION OF INFANT.
--- NOTE | 2018-12-11 05:19 | NUR ---
PT. STATES PAIN INCREASED TO 8 OF 10 AND DESIRES ADDITIONAL PERCOCET. SAME GIVEN. PT. REMAINS IN NBN WITH INFANT.
--- NOTE | 2018-12-11 05:46 | NUR ---
PT CONTINUES SITTING IN THE NURSERY HOLDING INFANT.
--- NOTE | 2018-12-11 06:10 | NUR ---
PT. REMAINS IN NBN AWAITING TRANSFER OF . STATES PAIN HAS IMPROVED AND SHE RATES A 5 OF 10 AT THIS TIME. DISCUSSED WITH PT. THAT DR. SINCLAIR PLANS TO MAKE ROUNDS AND SEE HER AND HE WILL DECIDE ON HER DISCHARGE. PT. STATES UNDERSTANDING . STATES SHE WOULD LIKE TO SHOWER, ETC BEFORE SHE WOULD LEAVE ANYWAY.
[2018-12-11 06:13] LABS: RAPID PLASMA REAGIN Non Reactive (Non Reactive)
--- NOTE | 2018-12-11 06:30 | NUR ---
LAB HERE AND INTO NBN TO DRAW BLOOD. AWAITING TRANSFER TEAM FOR INFANT.
[2018-12-11 06:40] LABS: BASOPHILS 0.1 % (0-2); EOSINOPHILS 0 % (0-7); HEMATOCRIT 27.9 % (36.0-48.0); HEMOGLOBIN 8.8 g/dL (12-16); IMMATURE GRANULOCYTES 0.8 % (0-5); LYMPHOCYTES 11.2 % (15-50); MCH 24.9 pg (26.0-34.0); MCHC 31.5 g/dL (31.0-37.0); MEAN PLATELET VOLUME 11.7 fL (7.4-10.4); MONOCYTES 7.3 % (2-11); NEUTROPHILS 80.6 % (40-80); PLATELET COUNT 175 10x3/uL (130-400); RBC 3.53 10x6/uL (4.00-5.40); RDW 15.7 % (11.5-14.5); WBC 12.9 10x3/uL (4.8-10.8)
--- NOTE | 2018-12-11 07:08 | NUR ---
PATIENT CURRENTLY IN NURSERY HOLDING . BEING TRANSFERED TO [place] THIS AM. DR SINCLAIR VISITED AND ORDERS RECEIVED TO DC PT. RH POSITIVE, RUBELLA IMMUNE, LAST TDAP RECEIVED IN 2016- PT INFORMED NEXT TDAP DUE IN 2026. NON SMOKER. PLANT CLERK CALLED AND INFORMED THAT PT NEEDS ADMIT ASSESSMENT COMPLETED. WILL COMPLETE PRIOR TO PATIENT DC.
[2018-12-11] MEDS ORDERED: IBUPROFEN600 MG PO (07:33)
[2018-12-11] MEDS ORDERED: HYDROCODON-ACE1 EA10 PO (07:33)
[2018-12-11 08:00] VITALS: BP 120/73; Ht 162.6 cm; Wt 87.7 kg
[2018-12-11 08:02] VITALS: BP 120/73
--- NOTE | 2018-12-11 08:20 | NUR ---
PATIENT RETURNED TO ROOM. SHIFT ASSESSMENT COMPLETED- SEE ADMIT ASSESSMENT FORM. DC TEACHING COMPLETED TO INCLUDE ROUTINE POST OP CARE, S&S DEPRESSION, S&S INFECTION, MEDICATION ADMINISTRATION, DANGER SIGNS AND FOLLOW-UP. REVIEWED BREASTCARE. PT PREVIOUSLY BREASTFED X 20 MONTHS. PLANS TO EAT BREAKFAST, SHOWER AND DC HOME. VISITORS X 2 IN ROOM. REGULAR DIET AT BEDSIDE. SPOUSE TOOK RX TO PHARMACY TO HAVE FILLED. TO CALL IF ANYTHING IS NEEDED.
--- NOTE | 2018-12-11 09:12 | NUR ---
COMPLETED SHOWER, AMBULATED IN [place], REQUESTED PAIN MEDICATION FOR 8/10 INCISIONAL BURNING. SAYS SHE FEELS BETTER AND READY TO GO HOME. PERCOCET 2 PO GIVEN FOR RELIEF. REVIEWED MEDICATION ADMINISTRATION, FOOD SOURCES OF IRON, AND FOLLOW-UP. NO QUESTIONS.
--- NOTE | 2018-12-11 09:20 | NUR ---
DC'D VIA WHEELCHAIR WITH FAMILY. ALL BELONGINGS REMOVED FROM ROOM.
--- NOTE | 2018-12-13 09:28 | OP ---
PATIENT NAME: PRISCILA MCCRACKEN MEDICAL RECORD: [id number] :93 LOCATION:[facility] D.1274 ADMISSION DATE:12/10/18 SURGEON: RAJESH JASSO MD DATE OF OPERATION: 12/10/2018 PREOPERATIVE DIAGNOSES: 1. Intrauterine at 36 weeks and 5 days. 2. Labor. 3. History of previous section. POSTOPERATIVE DIAGNOSES: 1. Intrauterine at 36 weeks and 5 days. 2. Labor. 3. History of previous section. PROCEDURE: Repeat low transverse section and lysis of adhesions. SURGEON: Rajesh Jasso MD ANESTHESIA: Regional via spinal. INTRAVENOUS FLUIDS: Per anesthesia record. ESTIMATED BLOOD LOSS: 1200 cc. SPECIMENS: Included placenta and cord for gases. FINDINGS: 1. Extensive adhesive disease involving the bladder and lower uterine segment and left fundal serosa, which was attached to the left rectus abdominis. 2. Viable infant, Apgars 9 and 9. 3. Placenta delivered manually intact, 3-vessel cord noted. 4. Normal appearing adnexa bilaterally. COMPLICATIONS: None apparent. PROCEDURE: The patient was taken to the operating room where regional anesthesia was achieved without difficulty. The patient was then prepped and draped in normal sterile fashion in the dorsal supine position. A Yang catheter had been placed and was draining freely. SCDs were on and functioning appropriately. A repeat Pfannenstiel skin incision was made just superior to the previous scar. This was carefully dissected downward through the underlying subcutaneous fat to level of the fascia. The fascia was then excised carefully in the midline until the rectus abdominis muscles were identified. The fascial incision was then extended bilaterally using the Mcclellan scissors. Superior and inferior aspect of the fascial incision were then grasped with Anita clamps times 2, tented upward, and sharply dissected from the underlying rectus muscle using the Mcclellan scissors and the Bovie cautery. The rectus muscles were then sharply in the midline and the peritoneum was identified. The peritoneum was carefully entered at the superior aspect of the incision. The adhesive disease could be appreciated through the initial peritoneal entry site. The peritoneum was carefully dissected downward using the Metzenbaum scissors with direct visualization of the bladder and lower uterine segment was identified and a bladder flap was created by excising the anterior leaf of the broad ligament across the lower uterine segment. This was developed sharply OPERATIVE REPORT [id number] PRISCILA MCCRACKEN with the Metzenbaum scissors and the bladder blade was replaced. A low transverse incision was made and extended using the Pelosi method. The was noted at that time to be in transverse presentation. At this point, the breech was delivered back up. Bilateral legs were delivered without difficulty followed by the bilateral arms and then the head, the was delivered atraumatically and bulb suctioned upon delivery. The cord was clamped times 2, cut, and the was handed to the awaiting nursery team. Cord was obtained for gases. The placenta was removed manually and intact. A 3-vessel cord was noted. The uterus was exteriorized, cleared of all clots and debris and vigorously massaged. A good uterine tone was noted. The patient was given Hemabate to increase uterine tone. The uterine incision was then repaired with 0 Vicryl in a running locked fashion times 2 with several areas oversewn with 2-0 Vicryl with good hemostasis noted. Attention was then turned to a large 3 cm band which appeared to connect the anterior fundal portion of the uterus to the left rectus abdominis muscle. This band was carefully examined and not found to be involving the bladder or the adnexa or cornua of the uterus, a curved Anita clamp was placed across the adhesion directly adjacent to the uterus and the band was cut using 0 Vicryl. The incisional side involving the rectus muscle was then oversewn with 0 Vicryl and 2-0 Vicryl until good hemostasis was noted. Attention was then turned to the serosal defect on the uterus. This is repaired using 0 and 2-0 Vicryl in a running locked fashion. Good hemostasis was noted. Posterior cul-de-sac was then thoroughly irrigated. Counts were correct times 2 for needles, sponges, and instruments. FloSeal was placed on the uterine incision and the adhesion sites on the uterus. Interceed was placed over the uterine incision and the serosal defect repaired on the anterior portion of the uterus. Uterus had been replaced into the pelvis and good hemostasis was again noted. Counts were correct times 2 for needles, sponges, and instruments. The fascia was then repaired with 0 loop PDS times 1 and the skin repaired with geraldine. The patient tolerated the procedure well, transferred to postanesthesia recovery stable without incident. TRANSINT:[id number] Voice Confirmation ID: [id number] DOCUMENT ID: [id number] RAJESH JASSO MD at 0928 CC: [id number] DICTATION DATE: 12/12/18 0704 CAR SALTER: 12/12/18 1204 DIS IN 12/11/18 [facility] [address] [place] [id number]
== END 2018-12-11 09:20 | disposition home or self-care (01) | DRG 788 ==
LOC: D.LD 21:23 → D.LDO 21:23 → D.LD 22:32 → D.LDO 12-10 06:35 → D.LD 12-10 07:40
PROVIDERS: Obstetrics & Gynecology; ADMIT Obstetrics & Gynecology; ATTEND Obstetrics & Gynecology
PROC: 10D00Z1 Extraction of Products of Conception, Low, Open Approach (ICD-10-PCS; principal; 2018-12-10 07:06)
DX: O13.4 Gestational [pregnancy-induced] hypertension without significant proteinuria, complicating childbirth (principal); Z3A.36 36 weeks gestation of pregnancy; Z37.0 Single live birth; O34.211 Maternal care for low transverse scar from previous cesarean delivery; O99.02 Anemia complicating childbirth; O99.62 Diseases of the digestive system complicating childbirth; K66.0 Peritoneal adhesions (postprocedural) (postinfection)